=== PATIENT | female | born 1960 | race Caucasian/White ===

== ENCOUNTER 2021-07-22 07:09 | Day surgery (SDC) | payer OTHER ==
[~2021-07-22] VITALS: Ht 154.9 cm; Wt 57.6 kg
[2021-07-22] MEDS ORDERED: diphenhydrAMINE 50 MG/ML VIAL ONE (08:30)
[2021-07-22] MEDS ORDERED: MIDAZOLAM 2 MG/2 ML VIAL ONE (08:31)
[2021-07-22] MEDS ORDERED: LIDOCAINE 2% 100 MG/5 ML UJET TP ONE (08:31)
[2021-07-22] MEDS ORDERED: fentaNYL citrate 0.05 MG/ML VIAL ONE (08:31)
[2021-07-22] MEDS: MIDAZOLAM 2 MG/2 ML VIAL IVP ONE (08:35)
[2021-07-22] MEDS: fentaNYL citrate 0.05 MG/ML VIAL IVP ONE (08:36)
[2021-07-22] MEDS: LIDOCAINE 2% 100 MG/5 ML UJET TP ONE (08:40)
== END 2021-07-22 09:55 | disposition home or self-care (01) ==
LOC: MOR 07:09 → MMU 07:10 → MOR 09:55
PROVIDERS: ATTEND Internal Medicine Gastroenterology
DX: Z12.11 Encounter for screening for malignant neoplasm of colon (principal); D12.2 Benign neoplasm of ascending colon; I10 Essential (primary) hypertension; E11.9 Type 2 diabetes mellitus without complications; Z20.822 Contact with and (suspected) exposure to COVID-19; Z79.899 Other long term (current) drug therapy
CPT/HCPCS: 45385; 87426; J2250; J3010; J1200